=== PATIENT | male | born 1975 | race Caucasian/White ===

== ENCOUNTER 2016-07-06 15:00 | Emergency (ER) | payer SELFPAY ==
--- NOTE | 2016-07-06 16:21 | ED CLINICAL REPORT ---
Clinical Report - Physicians/Mid Levels [facility] [address] [place] [address] 07/06/2016 15:00 Patient: SHANICE JANSEN Time Seen: 15:02. Arrived- By ambulance. Historian- patient and EMS personnel. HISTORY OF PRESENT ILLNESS Chief Complaint: FLANK PAIN. At its maximum, severity described as severe. When seen in the E.D., severity described as severe. Modifying factors. Not worsened by anything. Not relieved by anything. This started just prior to arrival about 1 hour ago and is still present. It was gradual in onset and has been waxing/waning. It is described as "pain" and sharp. It is described as located in the left abdomen, left lower quadrant and left pelvis and the left flank and radiating to the left groin. The patient has had nausea. No vomiting or diarrhea. Similar symptoms previously: Diagnosis: kidney stone. ( 5 prior kidney stones with similar symptoms). Recent medical care: ( last seen for kidney stone 6 months ago in [place] - had CT then). Not recently seen/assessed. REVIEW OF SYSTEMS No constipation, black stools, hematemesis, difficulty with urination or pain with urination. No bloody stools, fever, headache, sore throat or chest pain. No difficulty breathing or cough. The patient has had urinary frequency. The patient has had back pain (left flank). All systems otherwise negative, except as recorded above. PAST HISTORY Has had multiple episodes of urinary calculi. Seizures. Anxiety. Depression. Surgeries: Renal stone manipulation. Medications: Sertraline HCl Oral. LamoTRIgine Oral. Allergies: No Known Drug Allergy. SOCIAL HISTORY Never smoker. Occasional alcohol use. History of drug use: marijuana. Residence: new to the area - recently moved from [place] Is a local resident. ADDITIONAL NOTES The nursing notes have been reviewed. PHYSICAL EXAM Vital Signs: 07/06/2016 15:02 BP: 152/112. HR: 127. RR: 24. O2 saturation: 100%. Pain level now: 10/10. Appearance: Alert. Oriented X3. Patient in severe distress. Eyes: Pupils equal, round and reactive to light. Eyes normal inspection. No scleral icterus or pale conjunctivae. ENT: Pharynx normal. No pharyngeal erythema or tonsillar exudate. The mucous membranes are not dry. Neck: Normal inspection. Neck supple. CVS: Tachycardia. Heart sounds normal. Pulses normal. Respiratory: No respiratory distress. Breath sounds normal. Abdomen: Soft and nontender. No organomegaly. No mass. Back: Normal inspection. Skin: Skin warm and dry. Normal skin color. No rash. Normal skin turgor. Extremities: Extremities exhibit normal ROM. No calf tenderness. No lower extremity edema. Neuro: Oriented X 3. No motor deficit. LABS, X-RAYS, AND EKG Laboratory Tests: UA-Culture if indicated: (SAMANTHA: 07/06/2016 15:20) ( MsgRcvd 07/06/2016 15:55) Final results Test Result Flag Units (Reference) URINE COLOR RED URINE APPEARANCE SL CLOUDY URINE GLUCOSE NEGATIVE (NEGATIVE) URINE BILIRUBIN NEGATIVE (NEGATIVE) URINE KETONE NEGATIVE (NEGATIVE) URINE SPECIFIC GRAVITY 1.025 (1.010-1.030) URINE PH 6.0 (5.0-8.0) URINE PROTEIN 1+ (NEGATIVE) URINE UROBILINOGEN 0.2 EU/dL (0.2-1.0) URINE NITRITE NEGATIVE (NEGATIVE) URINE BLOOD 3+ (NEGATIVE) URINE LEUK ESTERASE NEGATIVE (NEGATIVE) URINE RBC >100 rbc/hpf (0-1) URINE WBC 5-10 wbc/hpf (0-1) URINE EPITHELIAL CELLS RARE EPI/hpf (0-5) URINE BACTERIA FEW (1+) (NONE SEEN) URINE COMMENT CULT NOT INDICATED URINE CULTURES ARE SET-UP BASED ON THE FOLLOWING CRITERIA:POSITIVE NITRITEPOSITIVE LEUKOCYTE ESTERASEGREATER THAN 10 WHITE BLOOD CELLSMODERATE (2+) OR GREATER BACTERIA CBC w Diff: (SAMANTHA: 07/06/2016 15:15) ( Mscvd 07/06/2016 15:42) Final results Test Result Flag Units (Reference) WHITE BLOOD COUNT 5.9 K/uL (4.5-11.5) RED BLOOD COUNT 4.56 M/uL (4.50-5.90) HEMOGLOBIN 12.2 L gm/dL (13.5-17.5) HEMATOCRIT 36.4 L % (41.0-53.0) MEAN CELL VOLUME 80 fL (80-100) MEAN CORPUSCULAR HGB 27 pg (26-34) MEAN CORPUSCULAR HGB CONC 34 g/dL (31-37) RED CELL DISTRIBUTION WIDTH 14.9 H % (11.6-14.8) PLATELET COUNT 384 K/uL (150-400) NEUTROPHIL % 56.4 % (50-75) LYMPH % 31.3 % (25-40) MONO % 10.5 % (3-14) EOSINOPHIL % 1.1 % (0-4) BASOPHIL % 0.7 % (0-2) CMP: (SAMANTHA: 07/06/2016 15:15) ( MsgRcvd 07/06/2016 15:50) Final results Test Result Flag Units (Reference) GLUCOSE 107 mg/dL (70-110) BUN 21 H mg/dL (7-18) CREATININE 1.1 mg/dL (0.6-1.3) Estimated GFR >60 mL/min Estimated GFR- >60 mL/min Note: Persistent reduction over 3 months in eGFR<60 mL/min/1.73 m2 defines CKD. Patients with eGFR values>=60 mL/min/1.73 m2 may also have CKD if evidence ofpersistent proteinuria. Additional information may be foundat www.[email or web address].org. SODIUM 139 mmol/L (136-145) POTASSIUM 4.0 mmol/L (3.5-5.1) CHLORIDE 103 mmol/L (98-107) CARBON DIOXIDE 26 mmol/L (21-32) CALCIUM 9.3 mg/dL (8.5-10.1) TOTAL PROTEIN 8.4 H g/dL (6.4-8.2) ALBUMIN 4.1 g/dL (3.3-5.0) BILIRUBIN, TOTAL 0.3 mg/dL (0.0-1.0) ALKALINE PHOSPHATASE 66 U/L (46-116) AST (SGOT) 18 U/L (15-37) ALT (SGPT) 29 U/L (12-78) LIPASE 155 U/L (73-393) AMYLASE 57 U/L (25-115) . Pulse Oximetry: 07/06/2016 15:02 O2 saturation: 100%. (FIO2 - room air). Interpretation: normal. PROGRESS AND PROCEDURES Course of Care: Normal Saline 1 liters IVPB given. Toradol 15 mg + 15 mg IVP given. Zofran 4 mg IVP given. Dilaudid 1 mg + 1 mg IVP given. Discussed option of CT KUB with pt and, after full discussion of risks and benefits, we will hold this for now (multiple prior stones and last CT approx 6 mo ago) 16:38 07/06/16. Patient is stable. The patient's symptoms are now gone. Physical exam findings are improved. Patient/family counseled. Old medical records ordered. (from [facility] and [facility] - no records from [facility] - "not in the system"). Disposition: Discharged. Condition: stable and improved. CLINICAL IMPRESSION Ureterolithiasis in the left ureter with renal colic. No urinary tract infection. Occasional substance abuse- marijuana with anxiety. Mild chronic anemia. Clinical picture does not suggest urinary tract infection. INSTRUCTIONS Do not work for three days. Drink plenty of fluids. No alcohol until released. (There is no urology service at [facility], but [facility] has multiple urologist - see below for two in the area (Dr Johnson also has office hours at the [facility] - see bleow): Kandy Johnson MD [facility] [address] [place], [place] [id number] [facility] [address] [place] [id number] [facility] [address] [place], [place] [id number] Shanique Allison MD [facility] [address] [place], [place] [id number] [facility] [address] [place], [place] [id number] Urology). Warnings: Further evaluation is necessary in order to recheck abnormal lab, obtain test results, conduct further tests and assess the possibility of serious illness. It is very important to follow up with a physician. SEDATIVE MEDICATION: You were given sedative medication during your visit. Do not drive or operate dangerous machinery. CONTROLLED SUBSTANCE WARNINGS. GENERAL WARNINGS: Return or contact your physician immediately if your condition worsens or changes unexpectedly, if not improving as expected, or if other problems arise. Your Current Medications: CONTINUE TAKING THE FOLLOWING MEDICATIONS: LamoTRIgine Oral. Sertraline HCl Oral. Prescription Medications: Zofran (orally disintegrating tablets) 4 mg: take 1-2 orally every 8 hours as needed for nausea and vomiting. Dispense ten (10). No refill. Substitution is permissible. Toradol 10 mg tablets: Take 1 tablet orally every 6 hours as needed. Dispense fifteen (15). No refills. Substitution is permissible. Oxycodone/APAP 5 mg/325 mg: take 1-2 tablets orally every 6 hours as needed for pain. Dispense twelve (12). No refill. Flomax 0.4 mg: take 1 orally every 24 hours. Dispense fifteen (15). No refills. Substitution is permissible. Follow-up: Follow up with a urologist in about two days. Follow-up with: Melvin Berry MD, Urology, , [address] [facility], [address] (Electronically signed by Clemente Forrester DO 07/06/2016 22:00)
--- NOTE | 2016-07-06 16:21 | ED NURSING NOTES ---
Clinical Report - Nurses [facility] [place] [address] 07/06/2016 15:00 Patient: SHANICE JANSEN TRIAGE Acuity: LEVEL 3. Chief Complaint: (Left flank pain). Alert. No acute distress. SEPSIS SCREEN: Sepsis Screen. Negative (no infection suspected/documented). --15:06 Geetha Taylor R.N. 15:02 07/06/16. BP: 152/112. HR: 127. RR: 24. O2 saturation: 100% on room air. Pain level now: 01/25. --15:06 Geetha Taylor R.N. Weight: 104.3 kg stated. Height/Length: 75 inches Per Patient. BMI: 28.7. --15:06 Geetha Taylor R.N. Medications LamoTRIgine Oral. --15:02 Geetha Taylor R.N. Sertraline HCl Oral. --15:02 Geetha Taylor R.N. Medication/allergy information source: the patient. --15:06 Geetha Taylor R.N. Allergies No Known Drug Allergy. --15:02 Geetha Taylor R.N. History Arrived by EMS. Historian: patient. Unaccompanied. Onset. (1 hours ago). ( Pt reports a history of kidney stones.). Treatment [employer]ING [employer] LEADER: None. SOCIAL HX: Never smoker. Occasional alcohol use. History of occasional drug use: marijuana. FALL RISK ASSESSMENT: Fall risk assessment completed. No fall risk identified. NUTRITIONAL RISK ASSESSMENT: The nutritional risk assessment revealed no deficiencies. FUNCTIONAL ASSESSMENT: Functional assessment: no impairments noted. LEARNING NEEDS ASSESSMENT: The learning needs assessment revealed no barriers. SKIN INTEGRITY ASSESSMENT: Skin integrity risk assessment completed. No skin integrity risk identified. --15:06 Geetha Taylor R.N. PROBLEMS: Nephrolithiasis. Epilepsy. --15:03 Geetha Taylor R.N. ADDITIONAL SURGERIES: Shoulder Surgery. VAGAL NERVE STIMULATOR. --15:03 Geetha Taylor R.N. Assessment GENERAL / NEURO / PSYCH: Alert. Oriented X 4. Appears in no acute distress. Appears in pain and anxious. Jessica Coma Scale: 15- eyes open spontaneously (4); best verbal response- oriented x 4 (5); best motor response- obeys commands (6). RESPIRATORY: Respirations not labored. CVS: Capillary refill less than 2 seconds. GI / : Abdomen soft and nontender. SKIN: Mucous membranes are pink. Skin is warm and dry. --15:06 Geetha Taylor R.N. Interventions ID band on patient. To room. Transported via stretcher by EMS. Gowned. --15:06 Geetha Taylor R.N. PHYSICAL ASSESSMENT 15:07/06/16. To room via stretcher. Patient gowned. GENERAL / NEURO / PSYCH: Alert. Oriented X 4. Appears in no acute distress. HEENT: Mucous membranes are pink. RESPIRATORY: Respirations not labored. CVS: Capillary refill less than 2 seconds. GI / : Abdomen soft and nontender. SKIN: Skin is warm and dry. --15:07 Geetha Taylor R.N. NURSING PROGRESS NOTES 15:07/06/16. Patient gowned. Two patient identifiers checked. Call light placed in reach. Side rails up x 1. Bed placed in lowest position. Brakes of bed on. Patient ready for evaluation- chart flagged and ED physician notified. --15:07 Geetha Taylor R.N. 15:12 07/06/2016 Site #1 started via IV in the right antecubital space with an 18g angiocath, with aseptic technique and good blood return; one attempt. Blood drawn: rainbow set. Labeled in the presence of the patient and sent to the lab. --15:12 Geetha Taylor R.N. 15:12 07/06/2016 Started bag #1 1000 mL IV Fluids IV NS (Saline); at 1000 mL/hr over 1 hour(s) via site #1 via IV pump. Allergies verified and confirmed 5 rights. IV patency established. IV site checked: no pain, redness, or swelling. IV flushed thoroughly pre- and post-medication administration. --15:13 Geetha Taylor R.N. 15:13 07/06/2016 Zofran (Ondansetron HCl) IVP 4 mg given over 1 minute(s) via site #1. Allergies verified and confirmed 5 rights. IV patency established. IV site checked: no pain, redness, or swelling. IV flushed thoroughly pre- and post-medication administration. IVP given by RN. --15:13 Geetha Taylor R.N. 15:14 07/06/2016 Toradol IVP 15 mg given over 1 minute(s) via site #1. Allergies verified and confirmed 5 rights. IV patency established. IV site checked: no pain, redness, or swelling. IV flushed thoroughly pre- and post-medication administration. IVP given by RN. --15:14 Geetha Taylor R.N. 15:15 07/06/2016 Dilaudid (HYDROmorphone HCl PF) IVP 1 mg given over 1 minute(s) via site #1. Allergies verified, confirmed 5 rights and sedative warning given to the patient. IV patency established. IV site checked: no pain, redness, or swelling. IV flushed thoroughly pre- and post-medication administration. IVP given by RN. --15:15 Geetha Taylor R.N. 15:26 07/06/16. Checked patient name and birthdate: patient confirmed urine collected with return of red-colored clear urine; sample sent to lab for urinalysis. Specimen labeled in the presence of the patient. --15:27 Geetha Taylor R.N. 15:46 07/06/2016 Dilaudid (HYDROmorphone HCl PF) IVP 1 mg given over 1 minute(s) via site #1. Allergies verified, confirmed 5 rights and sedative warning given to the patient. IV patency established. IV site checked: no pain, redness, or swelling. IV flushed thoroughly pre- and post-medication administration. IVP given by RN. --15:46 Geetha Taylor R.N. 15:47 07/06/2016 Toradol IVP 15 mg given over 1 minute(s) via site #1. Allergies verified and confirmed 5 rights. IV patency established. IV site checked: no pain, redness, or swelling. IV flushed thoroughly pre- and post-medication administration. IVP given by RN. --15:52 Geetha Taylor R.N. 16:27 07/06/16. BP: 112/74. HR: 89. RR: 16. O2 saturation: 98% on room air. Pain level now: 09/25. --16:28 Geetha Taylor R.N. 16:15 07/06/2016 IV Fluids IV NS Discontinued: bag #1 infused. Total amount infused: 1000 mL. IV patency established. IV site checked: no pain, redness, or swelling. IV flushed thoroughly. --16:32 Geetha Taylor R.N. 16:28 07/06/16. Reassessment after fluids administered and medication administered. He reports no complaints, he is calm and resting quietly and he has had no adverse reaction. Overall patient status is improved- he states feels better. --16:28 Geetha Taylor R.N. 16:40 07/06/2016 Site #1 removed upon discharge. Catheter intact. Manual pressure and bandage applied. --11:42 Geetha Taylor R.N. DISPOSITION / DISCHARGE Departure time: 16:40 Jul 06 2016. Condition at departure: improved and stable. No learning barriers present. Discharge instructions provided and reviewed with the patient. Reviewed medication(s) side effects, precautions and dosing information. Prescription(s) given to the patient. Patient verbalized understanding. Written instructions provided in Italian. The patient was discharged by the physician. He was discharged home. He left the Emergency Department ambulatory and via (walked home). --11:41 Geetha Taylor R.N. 11:38 07/11/16. BP: 112/74. HR: 89. RR: 16. O2 saturation: 100% on room air. Temp: 98.2 F (oral). Pain level now: 09/25. --11:41 Geetha Taylor R.N. Locked/Released at 07/11/2016 11:42 by Geetha Taylor R.N.
--- NOTE | 2016-07-06 16:21 | ED ORDER SUMMARY ---
..... Patient: SHANICE JANSEN OrderSheet [facility] VisitID: [id number] [place] [address] 41y, M Registration Date/Time: 07/06/2016 ORDER SHEET Weight: 104.3 kg (stated) Allergies: No Known Drug Allergy GENERAL ORDERS: CBC w Diff Urgent (15:03 07/06/2016 PHutchinson DO) (Ack 15:06 KHoerner) (15:15 MWinterer R.N.) CMP Urgent (15:03 07/06/2016 PHutchinson DO) (Ack 15:06 KHoerner) (15:15 MWinterer R.N.) UA-Culture if indicated Urgent (15:03 07/06/2016 PHutchinson DO) (Ack 15:06 KHoerner) (15:26 MWinterer R.N.) Amylase Urgent (15:03 07/06/2016 PHutchinson DO) (Ack 15:06 KHoerner) (15:15 MWinterer R.N.) Lipase Urgent (15:03 07/06/2016 PHutchinson DO) (Ack 15:06 KHoerner) (15:15 MWinterer R.N.) NPO (15:03 07/06/2016 PHutchinson DO) (Ack 15:06 KHoerner) (15:12 MWinterer R.N.) Old Records (from [facility] and [facility]) (15:06 07/06/2016 PHutchinson DO) (15:14 KHoerner) Urine Drug Screen Urgent (16:19 07/06/2016 PHutchinson DO) (Ack 16:21 KHoerner) (16:28 MWinterer R.N.) MEDICATION ORDERS: IV FLUIDS: IV NS with Normal Saline 1 Liter: initial bolus 1000 mL (1000 mL/hr), then 500 mL/hr for X2 (NOW) (15:03 07/06/2016 PHutchinson DO) (15:13 MWinterer R.N.) Zofran IV 4 mg (NOW) (15:03 07/06/2016 PHutchinson DO) (15:13 MWinterer R.N.) Dilaudid IV 1 mg (HIGH ALERT MEDICATION, NOW) (15:03 07/06/2016 [facility]) (15:15 MWinterer R.N.) Toradol IV 15 mg (NOW) (15:03 07/06/2016 [facility]) (15:14 MWinterer R.N.) Dilaudid IV 1 mg (HIGH ALERT MEDICATION, NOW) (15:39 07/06/2016 [facility]) (15:46 MWinterer R.N.) Toradol IV 15 mg (NOW) (15:39 07/06/2016 [facility]) (Ack 15:46 MWinterer R.N.) (15:52 MWinterer R.N.) ORDER SHEET NOTES: [Electronically signed by Clemente Forrester DO (22:00 07/06/2016)] [Electronically signed by Geetha Taylor R.N. (11:42 07/11/2016)] [Electronically locked/signed by Geetha Taylor R.N. (11:42 07/11/2016)]
--- NOTE | 2016-07-06 16:21 | ED CLINICAL REPORT ---
Clinical Report - Physicians/Mid Levels [address] [place] [address] 07/06/2016 15:00 Patient: SHANICE JANSEN Time Seen: 15:02. Arrived- By ambulance. Historian- patient and EMS personnel. HISTORY OF PRESENT ILLNESS Chief Complaint: FLANK PAIN. At its maximum, severity described as severe. When seen in the E.D., severity described as severe. Modifying factors. Not worsened by anything. Not relieved by anything. This started just prior to arrival about 1 hour ago and is still present. It was gradual in onset and has been waxing/waning. It is described as "pain" and sharp. It is described as located in the left abdomen, left lower quadrant and left pelvis and the left flank and radiating to the left groin. The patient has had nausea. No vomiting or diarrhea. Similar symptoms previously: Diagnosis: kidney stone. ( 5 prior kidney stones with similar symptoms). Recent medical care: ( last seen for kidney stone 6 months ago in [place] - had CT then). Not recently seen/assessed. REVIEW OF SYSTEMS No constipation, black stools, hematemesis, difficulty with urination or pain with urination. No bloody stools, fever, headache, sore throat or chest pain. No difficulty breathing or cough. The patient has had urinary frequency. The patient has had back pain (left flank). All systems otherwise negative, except as recorded above. PAST HISTORY Has had multiple episodes of urinary calculi. Seizures. Anxiety. Depression. Surgeries: Renal stone manipulation. Medications: Sertraline HCl Oral. LamoTRIgine Oral. Allergies: No Known Drug Allergy. SOCIAL HISTORY Never smoker. Occasional alcohol use. History of drug use: marijuana. Residence: new to the area - recently moved from [place], [place] Is a local resident. ADDITIONAL NOTES The nursing notes have been reviewed. PHYSICAL EXAM Vital Signs: 07/06/2016 15:02 BP: 152/112. HR: 127. RR: 24. O2 saturation: 100%. Pain level now: 10/10. Appearance: Alert. Oriented X3. Patient in severe distress. Eyes: Pupils equal, round and reactive to light. Eyes normal inspection. No scleral icterus or pale conjunctivae. ENT: Pharynx normal. No pharyngeal erythema or tonsillar exudate. The mucous membranes are not dry. Neck: Normal inspection. Neck supple. CVS: Tachycardia. Heart sounds normal. Pulses normal. Respiratory: No respiratory distress. Breath sounds normal. Abdomen: Soft and nontender. No organomegaly. No mass. Back: Normal inspection. Skin: Skin warm and dry. Normal skin color. No rash. Normal skin turgor. Extremities: Extremities exhibit normal ROM. No calf tenderness. No lower extremity edema. Neuro: Oriented X 3. No motor deficit. LABS, X-RAYS, AND EKG Laboratory Tests: UA-Culture if indicated: (SAMANTHA: 07/06/2016 15:20) ( MsgRcvd 07/06/2016 15:55) Final results Test Result Flag Units (Reference) URINE COLOR RED URINE APPEARANCE SL CLOUDY URINE GLUCOSE NEGATIVE (NEGATIVE) URINE BILIRUBIN NEGATIVE (NEGATIVE) URINE KETONE NEGATIVE (NEGATIVE) URINE SPECIFIC GRAVITY 1.025 (1.010-1.030) URINE PH 6.0 (5.0-8.0) URINE PROTEIN 1+ (NEGATIVE) URINE UROBILINOGEN 0.2 EU/dL (0.2-1.0) URINE NITRITE NEGATIVE (NEGATIVE) URINE BLOOD 3+ (NEGATIVE) URINE LEUK ESTERASE NEGATIVE (NEGATIVE) URINE RBC >100 rbc/hpf (0-1) URINE WBC 5-10 wbc/hpf (0-1) URINE EPITHELIAL CELLS RARE EPI/hpf (0-5) URINE BACTERIA FEW (1+) (NONE SEEN) URINE COMMENT CULT NOT INDICATED URINE CULTURES ARE SET-UP BASED ON THE FOLLOWING CRITERIA:POSITIVE NITRITEPOSITIVE LEUKOCYTE ESTERASEGREATER THAN 10 WHITE BLOOD CELLSMODERATE (2+) OR GREATER BACTERIA CBC w Diff: (SAMANTHA: 07/06/2016 15:15) ( Mscvd 07/06/2016 15:42) Final results Test Result Flag Units (Reference) WHITE BLOOD COUNT 5.9 K/uL (4.5-11.5) RED BLOOD COUNT 4.56 M/uL (4.50-5.90) HEMOGLOBIN 12.2 L gm/dL (13.5-17.5) HEMATOCRIT 36.4 L % (41.0-53.0) MEAN CELL VOLUME 80 fL (80-100) MEAN CORPUSCULAR HGB 27 pg (26-34) MEAN CORPUSCULAR HGB CONC 34 g/dL (31-37) RED CELL DISTRIBUTION WIDTH 14.9 H % (11.6-14.8) PLATELET COUNT 384 K/uL (150-400) NEUTROPHIL % 56.4 % (50-75) LYMPH % 31.3 % (25-40) MONO % 10.5 % (3-14) EOSINOPHIL % 1.1 % (0-4) BASOPHIL % 0.7 % (0-2) CMP: (SAMANTHA: 07/06/2016 15:15) ( MsgRcvd 07/06/2016 15:50) Final results Test Result Flag Units (Reference) GLUCOSE 107 mg/dL (70-110) BUN 21 H mg/dL (7-18) CREATININE 1.1 mg/dL (0.6-1.3) Estimated GFR >60 mL/min Estimated GFR- >60 mL/min Note: Persistent reduction over 3 months in eGFR<60 mL/min/1.73 m2 defines CKD. Patients with eGFR values>=60 mL/min/1.73 m2 may also have CKD if evidence ofpersistent proteinuria. Additional information may be foundat www.kidney.org. SODIUM 139 mmol/L (136-145) POTASSIUM 4.0 mmol/L (3.5-5.1) CHLORIDE 103 mmol/L (98-107) CARBON DIOXIDE 26 mmol/L (21-32) CALCIUM 9.3 mg/dL (8.5-10.1) TOTAL PROTEIN 8.4 H g/dL (6.4-8.2) ALBUMIN 4.1 g/dL (3.3-5.0) BILIRUBIN, TOTAL 0.3 mg/dL (0.0-1.0) ALKALINE PHOSPHATASE 66 U/L (46-116) AST (SGOT) 18 U/L (15-37) ALT (SGPT) 29 U/L (12-78) LIPASE 155 U/L (73-393) AMYLASE 57 U/L (25-115) . Pulse Oximetry: 07/06/2016 15:02 O2 saturation: 100%. (FIO2 - room air). Interpretation: normal. PROGRESS AND PROCEDURES Course of Care: Normal Saline 1 liters IVPB given. Toradol 15 mg + 15 mg IVP given. Zofran 4 mg IVP given. Dilaudid 1 mg + 1 mg IVP given. Discussed option of CT KUB with pt and, after full discussion of risks and benefits, we will hold this for now (multiple prior stones and last CT approx 6 mo ago) 16:38 07/06/16. Patient is stable. The patient's symptoms are now gone. Physical exam findings are improved. Patient/family counseled. Old medical records ordered. (from [facility] and [facility] - no records from [facility] - "not in the system"). Disposition: Discharged. Condition: stable and improved. CLINICAL IMPRESSION Ureterolithiasis in the left ureter with renal colic. No urinary tract infection. Occasional substance abuse- marijuana with anxiety. Mild chronic anemia. Clinical picture does not suggest urinary tract infection. INSTRUCTIONS Do not work for three days. Drink plenty of fluids. No alcohol until released. (There is no urology service at , but [facility] has multiple urologist - see below for two in the area (Dr Johnson also has office hours at the [facility]– [place][Note 2] - see bleow): Kandy Johnson MD [facility] [address], [place] [id number] [facility] [address] [place], [place] [id number] [facility] [address] [place], [place] [id number] Shanique Allison MD [facility] [address], [place] [id number] [facility] Urology [address] [place], [place] [id number] Urology). Warnings: Further evaluation is necessary in order to recheck abnormal lab, obtain test results, conduct further tests and assess the possibility of serious illness. It is very important to follow up with a physician. SEDATIVE MEDICATION: You were given sedative medication during your visit. Do not drive or operate dangerous machinery. CONTROLLED SUBSTANCE WARNINGS. GENERAL WARNINGS: Return or contact your physician immediately if your condition worsens or changes unexpectedly, if not improving as expected, or if other problems arise. Your Current Medications: CONTINUE TAKING THE FOLLOWING MEDICATIONS: LamoTRIgine Oral. Sertraline HCl Oral. Prescription Medications: Zofran (orally disintegrating tablets) 4 mg: take 1-2 orally every 8 hours as needed for nausea and vomiting. Dispense ten (10). No refill. Substitution is permissible. Toradol 10 mg tablets: Take 1 tablet orally every 6 hours as needed. Dispense fifteen (15). No refills. Substitution is permissible. Oxycodone/APAP 5 mg/325 mg: take 1-2 tablets orally every 6 hours as needed for pain. Dispense twelve (12). No refill. Flomax 0.4 mg: take 1 orally every 24 hours. Dispense fifteen (15). No refills. Substitution is permissible. Follow-up: Follow up with a urologist in about two days. Follow-up with: Melvin Berry MD, Urology, , [address] [facility], [id number] (Electronically signed by Clemente Forrester DO 07/06/2016 22:00)
--- NOTE | 2016-07-06 16:21 | ED ORDER SUMMARY ---
..... Patient: SHANICE JANSEN OrderSheet [facility] VisitID: [id number] [place] [address] 41y, M Registration Date/Time: 07/06/2016 ORDER SHEET Weight: 104.3 kg (stated) Allergies: No Known Drug Allergy GENERAL ORDERS: CBC w Diff Urgent (15:03 07/06/2016 PHutchinson DO) (Ack 15:06 KHoerner) (15:15 MWinterer R.N.) CMP Urgent (15:03 07/06/2016 PHutchinson DO) (Ack 15:06 KHoerner) (15:15 MWinterer R.N.) UA-Culture if indicated Urgent (15:03 07/06/2016 PHutchinson DO) (Ack 15:06 KHoerner) (15:26 MWinterer R.N.) Amylase Urgent (15:03 07/06/2016 PHutchinson DO) (Ack 15:06 KHoerner) (15:15 MWinterer R.N.) Lipase Urgent (15:03 07/06/2016 PHutchinson DO) (Ack 15:06 KHoerner) (15:15 MWinterer R.N.) NPO (15:03 07/06/2016 PHutchinson DO) (Ack 15:06 KHoerner) (15:12 MWinterer R.N.) Old Records (from [facility] and [facility]) (15:06 07/06/2016 PHutchinson DO) (15:14 KHoerner) Urine Drug Screen Urgent (16:19 07/06/2016 PHutchinson DO) (Ack 16:21 KHoerner) (16:28 MWinterer R.N.) MEDICATION ORDERS: IV FLUIDS: IV NS with Normal Saline 1 Liter: initial bolus 1000 mL (1000 mL/hr), then 500 mL/hr for X2 (NOW) (15:03 07/06/2016 PHutchinson DO) (15:13 MWinterer R.N.) Zofran IV 4 mg (NOW) (15:03 07/06/2016 PHutchinson DO) (15:13 MWinterer R.N.) Dilaudid IV 1 mg (HIGH ALERT MEDICATION, NOW) (15:03 07/06/2016 [facility]) (15:15 MWinterer R.N.) Toradol IV 15 mg (NOW) (15:03 07/06/2016 [facility]) (15:14 MWinterer R.N.) Dilaudid IV 1 mg (HIGH ALERT MEDICATION, NOW) (15:39 07/06/2016 [facility]) (15:46 MWinterer R.N.) Toradol IV 15 mg (NOW) (15:39 07/06/2016 [facility]) (Ack 15:46 MWinterer R.N.) (15:52 MWinterer R.N.) ORDER SHEET NOTES: [Electronically signed by Clemente Forrester DO (22:00 07/06/2016)] [Electronically signed by Geetha Taylor R.N. (11:42 07/11/2016)] [Electronically locked/signed by Geetha Taylor R.N. (11:42 07/11/2016)]
--- NOTE | 2016-07-11 11:43 | ED DISCHARGE INSTRUCTIONS ---
Patient: SHANICE JANSEN General Instructions [facility] VisitID: [id number] [place], [place] [id number] 41y, M Registration Date/Time: 07/06/2016 Ureterolithiasis in the left ureter with renal colic. No urinary tract infection. Occasional substance abuse- marijuana with anxiety. Mild chronic anemia. INSTRUCTIONS Do not work for three days. Drink plenty of fluids. No alcohol until released. (There is no urology service at [facility], but [facility] has multiple urologist - see below for two in the area (Dr Johnson also has office hours at the [facility] [place] - see bleow): Kandy Johnson MD [facility] [address], [place] [id number] [facility] [address] [place], [place] [id number] [facility] [address] [place], [place] [id number] Shanique Allison MD [facility] [address], [place] [id number] [facility] [address] [place], [place] [id number] Urology). Warnings: Further evaluation is necessary in order to recheck abnormal lab, obtain test results, conduct further tests and assess the possibility of serious illness. It is very important to follow up with a physician. SEDATIVE MEDICATION: You were given sedative medication during your visit. Do not drive or operate dangerous machinery. CONTROLLED SUBSTANCE WARNINGS. GENERAL WARNINGS: Return or contact your physician immediately if your condition worsens or changes unexpectedly, if not improving as expected, or if other problems arise. Your Current Medications: CONTINUE TAKING THE FOLLOWING MEDICATIONS: LamoTRIgine Oral. Sertraline HCl Oral. Prescription Medications: Zofran (orally disintegrating tablets) 4 mg: take 1-2 orally every 8 hours as needed for nausea and vomiting. Dispense ten (10). No refill. Substitution is permissible. Toradol 10 mg tablets: Take 1 tablet orally every 6 hours as needed. Dispense fifteen (15). No refills. Substitution is permissible. Oxycodone/APAP 5 mg/325 mg: take 1-2 tablets orally every 6 hours as needed for pain. Dispense twelve (12). No refill. Flomax 0.4 mg: take 1 orally every 24 hours. Dispense fifteen (15). No refills. Substitution is permissible. Follow-up: Follow up with a urologist in about two days. Follow-up with: Melvin Berry MD, Urology, , [address] [facility], , [place], [id number] ADDITIONAL INFORMATION Kidney Stone (W/ Colic) The sharp cramping pain and nausea/vomiting that you have is due to a small stone which has formed in the kidney and is now passing down a narrow tube (ureter) on its way to your bladder. Once it reaches your bladder, the pain will stop. The stone may pass in your urine stream in one piece. [The size may be 1/16" to 1/4" (1-6mm)]. Or, the stone may also break up into oriana fragments which you may not even notice. Once you have had a kidney stone, you are at risk for developing another one in the future. Home Care: Drink plenty of fluids (at least 8 to 10 glasses of water a day). Most stones will pass on their own, but may take from a few hours to a few days. Sometimes the stone is too large to pass by itself and special methods will have to be used to remove the stone. Each time you urinate, do so in a jar. Pour the urine from the jar through the strainer and into the toilet. Continue doing this until 24 hours after your pain stops. By then, if there was a kidney stone, it should pass from your bladder. Some stones dissolve into sand-like particles and pass right through the strainer. In that case, you wont ever see a stone. Save any stone that you find in the strainer and bring it to your doctor for analysis. It may be possible to prevent certain types of stones from forming. Therefore, it is important to know what kind of stone you have. Try to stay as active as possible since this will help the stone pass. Do not stay in bed unless your pain prevents you from getting up. You may notice a red, pink or brown color to your urine. This is normal while passing a kidney stone. Follow Up with your doctor or return to this facility if the pain lasts more than 48 hours. Get Prompt Medical Attention if any of the following occur: Pain that is not controlled by the medicine given Repeated vomiting or unable to keep down fluids Weakness, dizziness or fainting Fever of 100.4F (38C) or higher, or as directed by your healthcare provider Passage of solid red or brown urine (can't see through it) or urine with lots of blood clots Unable to pass urine for 8 hours and increasing bladder pressure Marijuana Abuse Marijuana is the most widely used illegal drug in the [place]. It is called by various names such as pot, weed, blunts, grass, reefer, ganja, hash, hashish. It is usually smoked but can be mixed with foods or brewed as a tea. It is sometimes sold with PCP (Azael Dust) or amphetamine mixed in it. These drugs can cause other harmful side effects. Marijuana can cause the following effects: Changes in mood (stimulated, happy, drowsy, depressed, paranoid) Hallucinations Increased heart rate and blood pressure Increased appetite Time distortion, difficulty concentrating, impaired memory Lung damage (similar to cigarettes with chronic cough, wheezing, frequent colds and bronchitis) You can become psychologically dependent on marijuana. That means the craving to use the drug is emotional or psychological rather than due to physical withdrawal. Is Marijuana Running Your Life? Here are some of the signs: Relying on marijuana to feel good, forget problems, deal with stress or to relax Wanting to be alone most of the time or only with others who use drugs Losing interest in things that used to be important Changes in school or job performance or attendance Spending a lot of time thinking about how to get marijuana Stealing or selling your things so you can buy marijuana Unable to stop using even though you may want to quit Increasing anxiety, anger,or depression Sleeping too much, changes in eating habits (weight loss or gain) Needing to use more to get the same effect Home Care Once you have become addicted to any drug, quitting is hard to do. Most people find they can't quit without help. So, dont try to do this alone. Talk to someone you trust who can support you. Seek professional help. Avoid people and places where drugs are used. That only increases the temptation to use. Follow Up with your doctor or as advised by our staff. For more information or a referral to a treatment center in your area, contact: Your local mental health center or the National Alcohol and Substance Abuse Information Center (020)-213-6945 www.addictioncareKatuah Market.[employer] National [place] on Alcoholism and Drug Dependence 127-798-DSOQ www.ncadd.org Marijuana Anonymous 906-876-0043 www.marijuana-anonymous.org Get Prompt Medical Attention if any of the following occur: You feel extreme depression, fear, anxiety, or anger toward yourself or others You feel out of control You feel that you may try to harm yourself or another Anemia [Type Not Specified, Adult] Red blood cells carry oxygen to the tissues of the body. Anemia is a condition where the size or number of red blood cells in the body is reduced. Iron is needed to make red blood cells. The most common cause of anemia is iron deficiency. This may be due to: i) Blood loss (heavy menstrual periods or bleeding from the stomach or intestines); or, ii) Not eating enough iron-containing foods. Other causes of anemia include certain vitamin deficiencies, chronic kidney disease or certain other chronic illnesses. Anemia causes a feeling of being tired and run down. When anemia becomes severe, the skin becomes pale and there is shortness of breath with exertion. Headaches, dizziness, leg cramps with exertion, drowsiness and fatigue are other common symptoms. Home Care: If you are having symptoms of anemia listed above: -- Do not overexert yourself. -- Talk to your doctor before flying on an airplane or traveling to high altitudes. Follow Up with your doctor as advised by our staff. Additional blood testing may be required to determine the exact cause of your anemia. If testing was done on this visit, it may take several days to get all of the results. You may call this facility or follow up with your own doctor to get the results. Get Prompt Medical Attention if any of the following occur: -- Shortness of breath or chest pain -- Worsening of dizziness, fainting -- Vomiting blood or passing red or black-colored stool Ondansetron Oral disintegrating tablet What is this medicine? ONDANSETRON (on JES se kye) is used to treat nausea and vomiting caused by chemotherapy. It is also used to prevent or treat nausea and vomiting after surgery. How should I use this medicine? These tablets are made to dissolve in the mouth. Do not try to push the tablet through the foil backing. With dry hands, peel away the foil backing and gently remove the tablet. Place the tablet in the mouth and allow it to dissolve, then swallow. While you may take these tablets with water, it is not necessary to do so. Talk to your crate repairer regarding the use of this medicine in children. Special care may be needed. What side effects may I notice from receiving this medicine? Side effects that you should report to your doctor or health critical care nurse as soon as possible: allergic reactions like skin rash, itching or hives, swelling of the face, lips, or tongue breathing problems dizziness fast or irregular heartbeat feeling faint or lightheaded, falls fever and chills swelling of the hands and feet tightness in the chest Side effects that usually do not require medical attention (report to your doctor or health critical care nurse if they continue or are bothersome): constipation or diarrhea headache What may interact with this medicine? Do not take this medicine with any of the following medications: -apomorphine -cisapride -dofetilide -dronedarone -pimozide -thioridazine -ziprasidone This medicine may also interact with the following medications: -carbamazepine -phenytoin -rifampicin -tramadol -other medicines that prolong the QT interval (cause an abnormal heart rhythm) What if I miss a dose? If you miss a dose, take it as soon as you can. If it is almost time for your next dose, take only that dose. Do not take double or extra doses. Where should I keep my medicine? Keep out of the reach of children. Store between 2 and 30 degrees C (36 and 86 degrees F). Throw away any unused medicine after the expiration date. What should I tell my health care provider before I take this medicine? They need to know if you have any of these conditions: heart disease history of irregular heartbeat liver disease low levels of magnesium or potassium in the blood an unusual or allergic reaction to ondansetron, granisetron, other medicines, foods, dyes, or preservatives or trying to get breast-feeding What should I watch for while using this medicine? Check with your doctor or health critical care nurse as soon as you can if you have any sign of an allergic reaction. Ketorolac Tromethamine Oral tablet What is this medicine? KETOROLAC (karthikeyan toussaint ROLE ak) is a non-steroidal anti-inflammatory drug (NSAID). It is used for a short while to treat moderate to severe pain, including pain after surgery. It should not be used for more than 5 days. How should I use this medicine? Take this medicine by mouth with a full glass of water. Follow the directions on the prescription label. Take your medicine at regular intervals. Do not take your medicine more often than directed. Do not take more than the recommended dose. A special MedGuide will be given to you by the pharmacist with each prescription and refill. Be sure to read this information carefully each time. Talk to your crate repairer regarding the use of this medicine in children. While this drug may be prescribed for children as young as 16 years of age for selected conditions, precautions do apply. Patients over 65 years old may have a stronger reaction and need a smaller dose. What side effects may I notice from receiving this medicine? Side effects that you should report to your doctor or health critical care nurse as soon as possible: allergic reactions like skin rash, itching or hives, swelling of the face, lips, or tongue black or tarry stools breathing problems changes in vision chest pain high blood pressure nausea or vomiting redness, blistering, peeling or loosening of the skin, including inside the mouth severe abdominal pain slurred speech or weakness on one side of the body unexplained weight gain or swelling unusual bleeding or bruising unusually weak or tired yellowing of eyes or skin Side effects that usually do not require medical attention (report to your doctor or health critical care nurse if they continue or are bothersome): diarrhea dizziness headache heartburn What may interact with this medicine? Do not take this medicine with any of the following medications: aspirin and aspirin-like medicines cidofovir methotrexate NSAIDs, medicines for pain and inflammation, like ibuprofen or naproxen pemetrexed probenecid This medicine may also interact with the following medications: alcohol alendronate alprazolam carbamazepine cyclosporine diuretics flavocoxid fluoxetine ginkgo lithium medicines for high blood pressure like enalapril medicines that affect platelets like pentoxifylline medicines that treat or prevent blood clots like heparin, warfarin muscle relaxants phenytoin steroid medicines like prednisone or cortisone thiothixene What if I miss a dose? If you miss a dose, take it as soon as you can. If it is almost time for your next dose, take only that dose. Do not take double or extra doses. Where should I keep my medicine? Keep out of the reach of children. Store at room temperature between 20 and 25 degrees C (68 and 77 degrees F). Throw away any unused medicine after the expiration date. What should I tell my health care provider before I take this medicine? They need to know if you have any of these conditions: asthma bleeding problems like hemophilia cigarette smoker drink more than 3 alcohol containing drinks a day heart disease or circulation problems such as heart failure or leg edema (fluid retention) high blood pressure kidney disease liver disease stomach bleeding or ulcers an unusual or allergic reaction to ketorolac, aspirin, other NSAIDs, other medicines, foods, dyes, or preservatives or trying to get breast-feeding What should I watch for while using this medicine? Tell your doctor or health critical care nurse if your pain does not get better. Talk to your doctor before taking another medicine for pain. Do not treat yourself. This medicine does not prevent heart attack or stroke. In fact, this medicine may increase the chance of a heart attack or stroke. The chance may increase with longer use of this medicine and in people who have heart disease. If you take aspirin to prevent heart attack or stroke, talk with your doctor or health critical care nurse. Do not take medicines such as ibuprofen and naproxen with this medicine. Side effects such as stomach upset, nausea, or ulcers may be more likely to occur. Many medicines available without a prescription should not be taken with this medicine. This medicine can cause ulcers and bleeding in the stomach and intestines at any time during treatment. Do not smoke cigarettes or drink alcohol. These increase irritation to your stomach and can make it more susceptible to damage from this medicine. Ulcers and bleeding can happen without warning symptoms and can cause . You may get drowsy or dizzy. Do not drive, use machinery, or do anything that needs mental alertness until you know how this medicine affects you. Do not stand or sit up quickly, especially if you are an older patient. This reduces the risk of dizzy or fainting spells. This medicine can cause you to bleed more easily. Try to avoid damage to your teeth and gums when you brush or floss your teeth. Oxycodone Hydrochloride, Acetaminophen Oral tablet What is this medicine? ACETAMINOPHEN; OXYCODONE (a set a LB prasanth fen; ox i KOE done) is a pain reliever. It is used to treat mild to moderate pain. How should I use this medicine? Take this medicine by mouth with a full glass of water. Follow the directions on the prescription label. Take your medicine at regular intervals. Do not take your medicine more often than directed. Talk to your crate repairer regarding the use of this medicine in children. Special care may be needed. Patients over 65 years old may have a stronger reaction and need a smaller dose. What side effects may I notice from receiving this medicine? Side effects that you should report to your doctor or health critical care nurse as soon as possible: allergic reactions like skin rash, itching or hives, swelling of the face, lips, or tongue breathing difficulties, wheezing confusion light headedness or fainting spells severe stomach pain yellowing of the skin or the whites of the eyes Side effects that usually do not require medical attention (report to your doctor or health critical care nurse if they continue or are bothersome): dizziness drowsiness nausea vomiting What may interact with this medicine? alcohol antihistamines barbiturates like amobarbital, butalbital, butabarbital, methohexital, pentobarbital, phenobarbital, thiopental, and secobarbital benztropine drugs for bladder problems like solifenacin, trospium, oxybutynin, tolterodine, hyoscyamine, and methscopolamine drugs for breathing problems like ipratropium and tiotropium drugs for certain stomach or intestine problems like propantheline, homatropine methylbromide, glycopyrrolate, atropine, belladonna, and dicyclomine general anesthetics like etomidate, ketamine, nitrous oxide, propofol, desflurane, enflurane, halothane, isoflurane, and sevoflurane medicines for depression, anxiety, or psychotic disturbances medicines for sleep muscle relaxants naltrexone narcotic medicines (opiates) for pain phenothiazines like perphenazine, thioridazine, chlorpromazine, mesoridazine, fluphenazine, prochlorperazine, promazine, and trifluoperazine scopolamine tramadol trihexyphenidyl What if I miss a dose? If you miss a dose, take it as soon as you can. If it is almost time for your next dose, take only that dose. Do not take double or extra doses. Where should I keep my medicine? Keep out of the reach of children. This medicine can be abused. Keep your medicine in a safe place to protect it from theft. Do not share this medicine with anyone. Selling or giving away this medicine is dangerous and against the law. Store at room temperature between 20 and 25 degrees C (68 and 77 degrees F). Keep container tightly closed. Protect from light. This medicine may cause accidental overdose and if it is taken by other adults, children, or pets. Flush any unused medicine down the toilet to reduce the chance of harm. Do not use the medicine after the expiration date. What should I tell my health care provider before I take this medicine? They need to know if you have any of these conditions: brain tumor Crohn's disease, inflammatory bowel disease, or ulcerative colitis drink more than 3 alcohol containing drinks per day drug abuse or addiction head injury heart or circulation problems kidney disease or problems going to the bathroom liver disease lung disease, asthma, or breathing problems an unusual or allergic reaction to acetaminophen, oxycodone, other opioid analgesics, other medicines, foods, dyes, or preservatives or trying to get breast-feeding What should I watch for while using this medicine? Tell your doctor or health critical care nurse if your pain does not go away, if it gets worse, or if you have new or a different type of pain. You may develop tolerance to the medicine. Tolerance means that you will need a higher dose of the medication for pain relief. Tolerance is normal and is expected if you take this medicine for a long time. Do not suddenly stop taking your medicine because you may develop a severe reaction. Your body becomes used to the medicine. This does NOT mean you are addicted. Addiction is a behavior related to getting and using a drug for a non-medical reason. If you have pain, you have a medical reason to take pain medicine. Your doctor will tell you how much medicine to take. If your doctor wants you to stop the medicine, the dose will be slowly lowered over time to avoid any side effects. You may get drowsy or dizzy. Do not drive, use machinery, or do anything that needs mental alertness until you know how this medicine affects you. Do not stand or sit up quickly, especially if you are an older patient. This reduces the risk of dizzy or fainting spells. Alcohol may interfere with the effect of this medicine. Avoid alcoholic drinks. There are different types of narcotic medicines (opiates) for pain. If you take more than one type at the same time, you may have more side effects. Give your health care provider a list of all medicines you use. Your doctor will tell you how much medicine to take. Do not take more medicine than directed. Call emergency for help if you have problems breathing. The medicine will cause constipation. Try to have a bowel movement at least every 2 to 3 days. If you do not have a bowel movement for 3 days, call your doctor or health critical care nurse. Do not take Tylenol (acetaminophen) or medicines that have acetaminophen with this medicine. Too much acetaminophen can be very dangerous. Many nonprescription medicines contain acetaminophen. Always read the labels carefully to avoid taking more acetaminophen. You have been given the following additional information: Kidney Stone W/ Colic Marijuana Abuse Anemia, Type Not Specified (Adult) Ondansetron Oral disintegrating tablet Ketorolac Tromethamine Oral tablet Oxycodone Hydrochloride, Acetaminophen Oral tablet Do not work for three days. (Electronically signed by Clemente Forrester DO 07/06/2016 22:00)
--- NOTE | 2016-07-11 11:43 | ED DISCHARGE INSTRUCTIONS ---
Patient: SHANICE JANSEN General Instructions [facility] VisitID: [id number] [place], [place] [id number] 41y, M Registration Date/Time: 07/06/2016 Ureterolithiasis in the left ureter with renal colic. No urinary tract infection. Occasional substance abuse- marijuana with anxiety. Mild chronic anemia. INSTRUCTIONS Do not work for three days. Drink plenty of fluids. No alcohol until released. (There is no urology service at [facility], but [facility] has multiple urologist - see below for two in the area (Dr Johnson also has office hours at the [facility] - see bleow): Kandy Johnson MD [facility] [address] [place] [id number] [facility] [address] [place], [place] [id number] [facility] [address] [place], [place] [id number] Shanique Allison MD [facility] [address], [place] [id number] [facility] [address] [place], [place] [id number] Urology). Warnings: Further evaluation is necessary in order to recheck abnormal lab, obtain test results, conduct further tests and assess the possibility of serious illness. It is very important to follow up with a physician. SEDATIVE MEDICATION: You were given sedative medication during your visit. Do not drive or operate dangerous machinery. CONTROLLED SUBSTANCE WARNINGS. GENERAL WARNINGS: Return or contact your physician immediately if your condition worsens or changes unexpectedly, if not improving as expected, or if other problems arise. Your Current Medications: CONTINUE TAKING THE FOLLOWING MEDICATIONS: LamoTRIgine Oral. Sertraline HCl Oral. Prescription Medications: Zofran (orally disintegrating tablets) 4 mg: take 1-2 orally every 8 hours as needed for nausea and vomiting. Dispense ten (10). No refill. Substitution is permissible. Toradol 10 mg tablets: Take 1 tablet orally every 6 hours as needed. Dispense fifteen (15). No refills. Substitution is permissible. Oxycodone/APAP 5 mg/325 mg: take 1-2 tablets orally every 6 hours as needed for pain. Dispense twelve (12). No refill. Flomax 0.4 mg: take 1 orally every 24 hours. Dispense fifteen (15). No refills. Substitution is permissible. Follow-up: Follow up with a urologist in about two days. Follow-up with: Melvin Berry MD, Urology, , [address] [facility], , [place], [address] ADDITIONAL INFORMATION Kidney Stone (W/ Colic) The sharp cramping pain and nausea/vomiting that you have is due to a small stone which has formed in the kidney and is now passing down a narrow tube (ureter) on its way to your bladder. Once it reaches your bladder, the pain will stop. The stone may pass in your urine stream in one piece. [The size may be 1/16" to 1/4" (1-6mm)]. Or, the stone may also break up into oriana fragments which you may not even notice. Once you have had a kidney stone, you are at risk for developing another one in the future. Home Care: Drink plenty of fluids (at least 8 to 10 glasses of water a day). Most stones will pass on their own, but may take from a few hours to a few days. Sometimes the stone is too large to pass by itself and special methods will have to be used to remove the stone. Each time you urinate, do so in a jar. Pour the urine from the jar through the strainer and into the toilet. Continue doing this until 24 hours after your pain stops. By then, if there was a kidney stone, it should pass from your bladder. Some stones dissolve into sand-like particles and pass right through the strainer. In that case, you wont ever see a stone. Save any stone that you find in the strainer and bring it to your doctor for analysis. It may be possible to prevent certain types of stones from forming. Therefore, it is important to know what kind of stone you have. Try to stay as active as possible since this will help the stone pass. Do not stay in bed unless your pain prevents you from getting up. You may notice a red, pink or brown color to your urine. This is normal while passing a kidney stone. Follow Up with your doctor or return to this facility if the pain lasts more than 48 hours. Get Prompt Medical Attention if any of the following occur: Pain that is not controlled by the medicine given Repeated vomiting or unable to keep down fluids Weakness, dizziness or fainting Fever of 100.4F (38C) or higher, or as directed by your healthcare provider Passage of solid red or brown urine (can't see through it) or urine with lots of blood clots Unable to pass urine for 8 hours and increasing bladder pressure Marijuana Abuse Marijuana is the most widely used illegal drug in the [place]. It is called by various names such as pot, weed, blunts, grass, reefer, ganja, hash, hashish. It is usually smoked but can be mixed with foods or brewed as a tea. It is sometimes sold with PCP (Azael Dust) or amphetamine mixed in it. These drugs can cause other harmful side effects. Marijuana can cause the following effects: Changes in mood (stimulated, happy, drowsy, depressed, paranoid) Hallucinations Increased heart rate and blood pressure Increased appetite Time distortion, difficulty concentrating, impaired memory Lung damage (similar to cigarettes with chronic cough, wheezing, frequent colds and bronchitis) You can become psychologically dependent on marijuana. That means the craving to use the drug is emotional or psychological rather than due to physical withdrawal. Is Marijuana Running Your Life? Here are some of the signs: Relying on marijuana to feel good, forget problems, deal with stress or to relax Wanting to be alone most of the time or only with others who use drugs Losing interest in things that used to be important Changes in school or job performance or attendance Spending a lot of time thinking about how to get marijuana Stealing or selling your things so you can buy marijuana Unable to stop using even though you may want to quit Increasing anxiety, anger,or depression Sleeping too much, changes in eating habits (weight loss or gain) Needing to use more to get the same effect Home Care Once you have become addicted to any drug, quitting is hard to do. Most people find they can't quit without help. So, dont try to do this alone. Talk to someone you trust who can support you. Seek professional help. Avoid people and places where drugs are used. That only increases the temptation to use. Follow Up with your doctor or as advised by our staff. For more information or a referral to a treatment center in your area, contact: Your local mental health center or the National Alcohol and Substance Abuse Information Center (517)-630-3812 www.addictioncareContract Live[facility] [employer] [place] on Alcoholism and Drug Dependence 590-083-QHEZ www.ncadd.org Marijuana Anonymous 921-089-3645 www.marijuana-anonymous.org Get Prompt Medical Attention if any of the following occur: You feel extreme depression, fear, anxiety, or anger toward yourself or others You feel out of control You feel that you may try to harm yourself or another Anemia [Type Not Specified, Adult] Red blood cells carry oxygen to the tissues of the body. Anemia is a condition where the size or number of red blood cells in the body is reduced. Iron is needed to make red blood cells. The most common cause of anemia is iron deficiency. This may be due to: i) Blood loss (heavy menstrual periods or bleeding from the stomach or intestines); or, ii) Not eating enough iron-containing foods. Other causes of anemia include certain vitamin deficiencies, chronic kidney disease or certain other chronic illnesses. Anemia causes a feeling of being tired and run down. When anemia becomes severe, the skin becomes pale and there is shortness of breath with exertion. Headaches, dizziness, leg cramps with exertion, drowsiness and fatigue are other common symptoms. Home Care: If you are having symptoms of anemia listed above: -- Do not overexert yourself. -- Talk to your doctor before flying on an airplane or traveling to high altitudes. Follow Up with your doctor as advised by our staff. Additional blood testing may be required to determine the exact cause of your anemia. If testing was done on this visit, it may take several days to get all of the results. You may call this facility or follow up with your own doctor to get the results. Get Prompt Medical Attention if any of the following occur: -- Shortness of breath or chest pain -- Worsening of dizziness, fainting -- Vomiting blood or passing red or black-colored stool Ondansetron Oral disintegrating tablet What is this medicine? ONDANSETRON (on JES se kye) is used to treat nausea and vomiting caused by chemotherapy. It is also used to prevent or treat nausea and vomiting after surgery. How should I use this medicine? These tablets are made to dissolve in the mouth. Do not try to push the tablet through the foil backing. With dry hands, peel away the foil backing and gently remove the tablet. Place the tablet in the mouth and allow it to dissolve, then swallow. While you may take these tablets with water, it is not necessary to do so. Talk to your intervention analyst regarding the use of this medicine in children. Special care may be needed. What side effects may I notice from receiving this medicine? Side effects that you should report to your doctor or health senior care provider as soon as possible: allergic reactions like skin rash, itching or hives, swelling of the face, lips, or tongue breathing problems dizziness fast or irregular heartbeat feeling faint or lightheaded, falls fever and chills swelling of the hands and feet tightness in the chest Side effects that usually do not require medical attention (report to your doctor or health senior care provider if they continue or are bothersome): constipation or diarrhea headache What may interact with this medicine? Do not take this medicine with any of the following medications: -apomorphine -cisapride -dofetilide -dronedarone -pimozide -thioridazine -ziprasidone This medicine may also interact with the following medications: -carbamazepine -phenytoin -rifampicin -tramadol -other medicines that prolong the QT interval (cause an abnormal heart rhythm) What if I miss a dose? If you miss a dose, take it as soon as you can. If it is almost time for your next dose, take only that dose. Do not take double or extra doses. Where should I keep my medicine? Keep out of the reach of children. Store between 2 and 30 degrees C (36 and 86 degrees F). Throw away any unused medicine after the expiration date. What should I tell my health care provider before I take this medicine? They need to know if you have any of these conditions: heart disease history of irregular heartbeat liver disease low levels of magnesium or potassium in the blood an unusual or allergic reaction to ondansetron, granisetron, other medicines, foods, dyes, or preservatives or trying to get breast-feeding What should I watch for while using this medicine? Check with your doctor or health senior care provider as soon as you can if you have any sign of an allergic reaction. Ketorolac Tromethamine Oral tablet What is this medicine? KETOROLAC (karthikeyan toussaint ROLE ak) is a non-steroidal anti-inflammatory drug (NSAID). It is used for a short while to treat moderate to severe pain, including pain after surgery. It should not be used for more than 5 days. How should I use this medicine? Take this medicine by mouth with a full glass of water. Follow the directions on the prescription label. Take your medicine at regular intervals. Do not take your medicine more often than directed. Do not take more than the recommended dose. A special MedGuide will be given to you by the pharmacist with each prescription and refill. Be sure to read this information carefully each time. Talk to your intervention analyst regarding the use of this medicine in children. While this drug may be prescribed for children as young as 16 years of age for selected conditions, precautions do apply. Patients over 65 years old may have a stronger reaction and need a smaller dose. What side effects may I notice from receiving this medicine? Side effects that you should report to your doctor or health senior care provider as soon as possible: allergic reactions like skin rash, itching or hives, swelling of the face, lips, or tongue black or tarry stools breathing problems changes in vision chest pain high blood pressure nausea or vomiting redness, blistering, peeling or loosening of the skin, including inside the mouth severe abdominal pain slurred speech or weakness on one side of the body unexplained weight gain or swelling unusual bleeding or bruising unusually weak or tired yellowing of eyes or skin Side effects that usually do not require medical attention (report to your doctor or health senior care provider if they continue or are bothersome): diarrhea dizziness headache heartburn What may interact with this medicine? Do not take this medicine with any of the following medications: aspirin and aspirin-like medicines cidofovir methotrexate NSAIDs, medicines for pain and inflammation, like ibuprofen or naproxen pemetrexed probenecid This medicine may also interact with the following medications: alcohol alendronate alprazolam carbamazepine cyclosporine diuretics flavocoxid fluoxetine ginkgo lithium medicines for high blood pressure like enalapril medicines that affect platelets like pentoxifylline medicines that treat or prevent blood clots like heparin, warfarin muscle relaxants phenytoin steroid medicines like prednisone or cortisone thiothixene What if I miss a dose? If you miss a dose, take it as soon as you can. If it is almost time for your next dose, take only that dose. Do not take double or extra doses. Where should I keep my medicine? Keep out of the reach of children. Store at room temperature between 20 and 25 degrees C (68 and 77 degrees F). Throw away any unused medicine after the expiration date. What should I tell my health care provider before I take this medicine? They need to know if you have any of these conditions: asthma bleeding problems like hemophilia cigarette smoker drink more than 3 alcohol containing drinks a day heart disease or circulation problems such as heart failure or leg edema (fluid retention) high blood pressure kidney disease liver disease stomach bleeding or ulcers an unusual or allergic reaction to ketorolac, aspirin, other NSAIDs, other medicines, foods, dyes, or preservatives or trying to get breast-feeding What should I watch for while using this medicine? Tell your doctor or health senior care provider if your pain does not get better. Talk to your doctor before taking another medicine for pain. Do not treat yourself. This medicine does not prevent heart attack or stroke. In fact, this medicine may increase the chance of a heart attack or stroke. The chance may increase with longer use of this medicine and in people who have heart disease. If you take aspirin to prevent heart attack or stroke, talk with your doctor or health senior care provider. Do not take medicines such as ibuprofen and naproxen with this medicine. Side effects such as stomach upset, nausea, or ulcers may be more likely to occur. Many medicines available without a prescription should not be taken with this medicine. This medicine can cause ulcers and bleeding in the stomach and intestines at any time during treatment. Do not smoke cigarettes or drink alcohol. These increase irritation to your stomach and can make it more susceptible to damage from this medicine. Ulcers and bleeding can happen without warning symptoms and can cause . You may get drowsy or dizzy. Do not drive, use machinery, or do anything that needs mental alertness until you know how this medicine affects you. Do not stand or sit up quickly, especially if you are an older patient. This reduces the risk of dizzy or fainting spells. This medicine can cause you to bleed more easily. Try to avoid damage to your teeth and gums when you brush or floss your teeth. Oxycodone Hydrochloride, Acetaminophen Oral tablet What is this medicine? ACETAMINOPHEN; OXYCODONE (a set a LB prasanth fen; ox i KOE done) is a pain reliever. It is used to treat mild to moderate pain. How should I use this medicine? Take this medicine by mouth with a full glass of water. Follow the directions on the prescription label. Take your medicine at regular intervals. Do not take your medicine more often than directed. Talk to your intervention analyst regarding the use of this medicine in children. Special care may be needed. Patients over 65 years old may have a stronger reaction and need a smaller dose. What side effects may I notice from receiving this medicine? Side effects that you should report to your doctor or health senior care provider as soon as possible: allergic reactions like skin rash, itching or hives, swelling of the face, lips, or tongue breathing difficulties, wheezing confusion light headedness or fainting spells severe stomach pain yellowing of the skin or the whites of the eyes Side effects that usually do not require medical attention (report to your doctor or health senior care provider if they continue or are bothersome): dizziness drowsiness nausea vomiting What may interact with this medicine? alcohol antihistamines barbiturates like amobarbital, butalbital, butabarbital, methohexital, pentobarbital, phenobarbital, thiopental, and secobarbital benztropine drugs for bladder problems like solifenacin, trospium, oxybutynin, tolterodine, hyoscyamine, and methscopolamine drugs for breathing problems like ipratropium and tiotropium drugs for certain stomach or intestine problems like propantheline, homatropine methylbromide, glycopyrrolate, atropine, belladonna, and dicyclomine general anesthetics like etomidate, ketamine, nitrous oxide, propofol, desflurane, enflurane, halothane, isoflurane, and sevoflurane medicines for depression, anxiety, or psychotic disturbances medicines for sleep muscle relaxants naltrexone narcotic medicines (opiates) for pain phenothiazines like perphenazine, thioridazine, chlorpromazine, mesoridazine, fluphenazine, prochlorperazine, promazine, and trifluoperazine scopolamine tramadol trihexyphenidyl What if I miss a dose? If you miss a dose, take it as soon as you can. If it is almost time for your next dose, take only that dose. Do not take double or extra doses. Where should I keep my medicine? Keep out of the reach of children. This medicine can be abused. Keep your medicine in a safe place to protect it from theft. Do not share this medicine with anyone. Selling or giving away this medicine is dangerous and against the law. Store at room temperature between 20 and 25 degrees C (68 and 77 degrees F). Keep container tightly closed. Protect from light. This medicine may cause accidental overdose and if it is taken by other adults, children, or pets. Flush any unused medicine down the toilet to reduce the chance of harm. Do not use the medicine after the expiration date. What should I tell my health care provider before I take this medicine? They need to know if you have any of these conditions: brain tumor Crohn's disease, inflammatory bowel disease, or ulcerative colitis drink more than 3 alcohol containing drinks per day drug abuse or addiction head injury heart or circulation problems kidney disease or problems going to the bathroom liver disease lung disease, asthma, or breathing problems an unusual or allergic reaction to acetaminophen, oxycodone, other opioid analgesics, other medicines, foods, dyes, or preservatives or trying to get breast-feeding What should I watch for while using this medicine? Tell your doctor or health senior care provider if your pain does not go away, if it gets worse, or if you have new or a different type of pain. You may develop tolerance to the medicine. Tolerance means that you will need a higher dose of the medication for pain relief. Tolerance is normal and is expected if you take this medicine for a long time. Do not suddenly stop taking your medicine because you may develop a severe reaction. Your body becomes used to the medicine. This does NOT mean you are addicted. Addiction is a behavior related to getting and using a drug for a non-medical reason. If you have pain, you have a medical reason to take pain medicine. Your doctor will tell you how much medicine to take. If your doctor wants you to stop the medicine, the dose will be slowly lowered over time to avoid any side effects. You may get drowsy or dizzy. Do not drive, use machinery, or do anything that needs mental alertness until you know how this medicine affects you. Do not stand or sit up quickly, especially if you are an older patient. This reduces the risk of dizzy or fainting spells. Alcohol may interfere with the effect of this medicine. Avoid alcoholic drinks. There are different types of narcotic medicines (opiates) for pain. If you take more than one type at the same time, you may have more side effects. Give your health care provider a list of all medicines you use. Your doctor will tell you how much medicine to take. Do not take more medicine than directed. Call emergency for help if you have problems breathing. The medicine will cause constipation. Try to have a bowel movement at least every 2 to 3 days. If you do not have a bowel movement for 3 days, call your doctor or health senior care provider. Do not take Tylenol (acetaminophen) or medicines that have acetaminophen with this medicine. Too much acetaminophen can be very dangerous. Many nonprescription medicines contain acetaminophen. Always read the labels carefully to avoid taking more acetaminophen. You have been given the following additional information: Kidney Stone W/ Colic Marijuana Abuse Anemia, Type Not Specified (Adult) Ondansetron Oral disintegrating tablet Ketorolac Tromethamine Oral tablet Oxycodone Hydrochloride, Acetaminophen Oral tablet Do not work for three days. (Electronically signed by Clemente Forrester DO 07/06/2016 22:00)
--- NOTE | 2016-07-11 11:43 | ED MED RECONCILIATION SUMMARY ---
Patient: SHANICE JANSEN Medication Reconciliation Report [facility] VisitID: [id number] [place] [address] 41y, M Registration Date/Time: 07/06/2016 Weight: 104.3 kg Height/Length: 75 in. BMI: 28.7 ALLERGIES: No Known Drug Allergy The patient's Home Medications are listed below: CONTINUE TAKING THE FOLLOWING MEDICATIONS: LamoTRIgine Oral Sertraline HCl Oral The source(s) of the original Home Medication information: patient The following Medications were given to the patient in the Emergency Department: IV NS IV Fluids bolus 0, then 1000 mL/hr, administered: 07/06/2016 3:12:00 PM Zofran [IVP] IVP 4 mg, administered: 07/06/2016 3:13:00 PM Toradol [IVP] IVP 15 mg, administered: 07/06/2016 3:14:00 PM Dilaudid [IVP] IVP 1 mg, administered: 07/06/2016 3:15:00 PM Dilaudid [IVP] IVP 1 mg, administered: 07/06/2016 3:46:00 PM Toradol [IVP] IVP 15 mg, administered: 07/06/2016 3:47:00 PM The following Medications were prescribed to the patient: Zofran (orally disintegrating tablets) 4 mg: take 1-2 orally every 8 hours as needed for nausea and vomiting. Dispense ten (10). No refill. Substitution is permissible. -- Clemente Forrester DO Toradol 10 mg tablets: Take 1 tablet orally every 6 hours as needed. Dispense fifteen (15). No refills. Substitution is permissible. -- Clemente Forrester DO Oxycodone/APAP 5 mg/325 mg: take 1-2 tablets orally every 6 hours as needed for pain. Dispense twelve (12). No refill. -- Clemente Forrester DO Flomax 0.4 mg: take 1 orally every 24 hours. Dispense fifteen (15). No refills. Substitution is permissible. -- Clemente Forrester DO
--- NOTE | 2016-07-11 11:43 | ED MED RECONCILIATION SUMMARY ---
Patient: SHANICE JANSEN Medication Reconciliation Report [facility] VisitID: [id number] [place] [address] 41y, M Registration Date/Time: 07/06/2016 Weight: 104.3 kg Height/Length: 75 in. BMI: 28.7 ALLERGIES: No Known Drug Allergy The patient's Home Medications are listed below: CONTINUE TAKING THE FOLLOWING MEDICATIONS: LamoTRIgine Oral Sertraline HCl Oral The source(s) of the original Home Medication information: patient The following Medications were given to the patient in the Emergency Department: IV NS IV Fluids bolus 0, then 1000 mL/hr, administered: 07/06/2016 3:12:00 PM Zofran [IVP] IVP 4 mg, administered: 07/06/2016 3:13:00 PM Toradol [IVP] IVP 15 mg, administered: 07/06/2016 3:14:00 PM Dilaudid [IVP] IVP 1 mg, administered: 07/06/2016 3:15:00 PM Dilaudid [IVP] IVP 1 mg, administered: 07/06/2016 3:46:00 PM Toradol [IVP] IVP 15 mg, administered: 07/06/2016 3:47:00 PM The following Medications were prescribed to the patient: Zofran (orally disintegrating tablets) 4 mg: take 1-2 orally every 8 hours as needed for nausea and vomiting. Dispense ten (10). No refill. Substitution is permissible. -- Clemente Forrester DO Toradol 10 mg tablets: Take 1 tablet orally every 6 hours as needed. Dispense fifteen (15). No refills. Substitution is permissible. -- Clemente Forrester DO Oxycodone/APAP 5 mg/325 mg: take 1-2 tablets orally every 6 hours as needed for pain. Dispense twelve (12). No refill. -- Clemente Forrester DO Flomax 0.4 mg: take 1 orally every 24 hours. Dispense fifteen (15). No refills. Substitution is permissible. -- Clemente Forrester DO
--- NOTE | 2016-07-11 11:43 | ED MAR SUMMARY ---
..... Medication Administration Record [facility] [address] [place] [address] Patient: SHANICE JANSEN Visit ID: [id number] 41y, M Weight: 104.3 kg Height/Length: 75 in BMI: 28.7 ALLERGIES: No Known Drug Allergy Start 15:12 07/06/2016 Geetha Taylor R.N., Stop 16:15 07/06/2016 Geetha Taylor R.N. Medication Administered: IV NS (SALINE), Dose: IV Fluids over 1 hour(s), Rate: 1000 mL/hr, Dispensed: 1000 mL bag, Site: #1 right AC. Medication Ordered: IV NS with Normal Saline 1 Liter: initial bolus 1000 mL (1000 mL/hr), then 500 mL/hr for X2 (NOW). Given 15:13 07/06/2016 Geetha Taylor R.N. Medication Administered: ZOFRAN [IVP] (ONDANSETRON HCL), Dose: 4 mg IVP over 1 minute(s), Site: #1 right AC. Medication Ordered: Zofran IV 4 mg (NOW). Given 15:14 07/06/2016 Geetha Taylor R.N. Medication Administered: TORADOL [IVP], Dose: 15 mg IVP over 1 minute(s), Site: #1 right AC. Medication Ordered: Toradol IV 15 mg (NOW). Given 15:15 07/06/2016 Geetha Taylor R.N. Medication Administered: DILAUDID [IVP] (HYDROMORPHONE HCL PF), Dose: 1 mg IVP over 1 minute(s), Site: #1 right AC. Medication Ordered: Dilaudid IV 1 mg (HIGH ALERT MEDICATION, NOW). Given 15:46 07/06/2016 Geetha Taylor R.N. Medication Administered: DILAUDID [IVP] (HYDROMORPHONE HCL PF), Dose: 1 mg IVP over 1 minute(s), Site: #1 right AC. Medication Ordered: Dilaudid IV 1 mg (HIGH ALERT MEDICATION, NOW). Given 15:47 07/06/2016 Geetha Taylor R.N. Medication Administered: TORADOL [IVP], Dose: 15 mg IVP over 1 minute(s), Site: #1 right AC. Medication Ordered: Toradol IV 15 mg (NOW).
--- NOTE | 2016-07-11 11:43 | ED MAR SUMMARY ---
..... Medication Administration Record [facility] [address] [place] [place] [address] Patient: SHNAICE JANSEN Visit ID: [id number] 41y, M Weight: 104.3 kg Height/Length: 75 in BMI: 28.7 ALLERGIES: No Known Drug Allergy Start 15:12 07/06/2016 Geetha Taylor R.N., Stop 16:15 07/06/2016 Geetha Taylor R.N. Medication Administered: IV NS (SALINE), Dose: IV Fluids over 1 hour(s), Rate: 1000 mL/hr, Dispensed: 1000 mL bag, Site: #1 right AC. Medication Ordered: IV NS with Normal Saline 1 Liter: initial bolus 1000 mL (1000 mL/hr), then 500 mL/hr for X2 (NOW). Given 15:13 07/06/2016 Geetha Taylor R.N. Medication Administered: ZOFRAN [IVP] (ONDANSETRON HCL), Dose: 4 mg IVP over 1 minute(s), Site: #1 right AC. Medication Ordered: Zofran IV 4 mg (NOW). Given 15:14 07/06/2016 Geetha Taylor R.N. Medication Administered: TORADOL [IVP], Dose: 15 mg IVP over 1 minute(s), Site: #1 right AC. Medication Ordered: Toradol IV 15 mg (NOW). Given 15:15 07/06/2016 Geetha Taylor R.N. Medication Administered: DILAUDID [IVP] (HYDROMORPHONE HCL PF), Dose: 1 mg IVP over 1 minute(s), Site: #1 right AC. Medication Ordered: Dilaudid IV 1 mg (HIGH ALERT MEDICATION, NOW). Given 15:46 07/06/2016 Geetha Taylor R.N. Medication Administered: DILAUDID [IVP] (HYDROMORPHONE HCL PF), Dose: 1 mg IVP over 1 minute(s), Site: #1 right AC. Medication Ordered: Dilaudid IV 1 mg (HIGH ALERT MEDICATION, NOW). Given 15:47 07/06/2016 Geetha Taylor R.N. Medication Administered: TORADOL [IVP], Dose: 15 mg IVP over 1 minute(s), Site: #1 right AC. Medication Ordered: Toradol IV 15 mg (NOW).
== END 2016-07-06 16:40 | disposition home or self-care (01) ==
LOC: ED SRH 15:00
DX: N20.1 Calculus of ureter (principal); F12.180 Cannabis abuse with cannabis-induced anxiety disorder; D64.9 Anemia, unspecified; Z79.899 Other long term (current) drug therapy; Z87.442 Personal history of urinary calculi
CPT/HCPCS: 90004; 90100; 92235; 92530; 92760; 92761; 92762; 92763; 92764; 92765; 92766; 92767; 95059